=== PATIENT | male | born 1950 | race Caucasian/White ===

== ENCOUNTER → 2022-05-21 08:55 | Outpatient (BNVA) | payer MEDICARE, OTHER, SELFPAY | PROVIDERS: PCP Family Medicine; Referring Provider Family Medicine; Visit Provider Student in an Organized Health Care Education/Training Program | DX: M17.11 Unilateral primary osteoarthritis, right knee (principal); M17.12 Unilateral primary osteoarthritis, left knee | CPT/HCPCS: 99213 ==

== ENCOUNTER 2023-09-09 02:24 | Outpatient (CLI) | payer OTHER, SELFPAY ==
[2023-09-09 12:19] LABS: HCT 42.6 % (40.0-50.0); HGB 14.5 g/dL (13.5-17.5); MCH 31.6 pg (27.0-33.0); MCV 93 fL (80-95); MPV 8.8 fL (8.0-11.0); Platelet Count 245 10^3/uL (130-400); RBC 4.59 10^6/uL (4.36-5.78); RDW 12.7 % (11.8-14.1); RDW-SD 43.8 fL; WBC 8.83 10^3/uL (4.4-10.8)
[2023-09-09 12:57] LABS: Anion Gap 8.2 mmol/L (3-11); BUN 25 mg/dL (7-18); CO2 28.8 mmol/L (21.0-32.0); CREATININE 1.2 mg/dL (0.70-1.30); Chloride 105 mmol/L (98-107); Estimated GFR 63.46 (mL/min/1.73m2); Glucose 104 mg/dL (74-106); Sodium 142 mmol/L (136-145)
== END 2023-09-09 02:25 | disposition home or self-care (01) ==
PROVIDERS: PCP Family Medicine; Visit Provider Student in an Organized Health Care Education/Training Program
DX: Z01.818 Encounter for other preprocedural examination (principal); M17.11 Unilateral primary osteoarthritis, right knee
CPT/HCPCS: 36415; 80048; 85027

== ENCOUNTER 2023-09-09 11:37 | Outpatient (CLI) | payer OTHER, SELFPAY ==
--- NOTE | 2023-09-09 11:00 | DI.RAD_ITS ---
Exam(s) XR STANDING ALIGNMENT EXAM: XR STANDING ALIGNMENT CLINICAL HISTORY: TKR planning. TECHNIQUE: 2D digital imaging was performed. Standing AP views were performed from the pelvis throu gh the ankles. COMPARISON: No exams were available for comparison FINDINGS: BONES: No acute fracture is present. No bony destructive lesion is seen. Leg length discrepancy: Minimal JOINTS: Knees: Severe degenerative changes of both medial femoral tibial joint spaces. Varus angulat ion. Ankles: Severe degenerative changes at the lateral tibiotalar and fibular talar joint of the right an kle. Mild degenerative changes of the left ankle. The hip joints show mild degenerative changes. SOFT TISSUE: Vascular calcifications. IMPRESSION: Severe degenerative changes of the medial femoral tibial joint spaces of both knees as well as the r ight ankle.. No significant leg length discrepancy. DATA REPOSITORY: RADIATION DOSE DELIVERED:
== END 2023-09-09 11:38 | disposition home or self-care (01) ==
LOC: DIORS 11:37
PROVIDERS: PCP Family Medicine; Visit Provider Physician Assistant
DX: M17.11 Unilateral primary osteoarthritis, right knee (principal); M17.12 Unilateral primary osteoarthritis, left knee; M19.071 Primary osteoarthritis, right ankle and foot; M19.072 Primary osteoarthritis, left ankle and foot
CPT/HCPCS: 77073

== ENCOUNTER 2023-09-22 07:04 | Day surgery (SDC) | payer OTHER, SELFPAY ==
[2023-09-22] VITALS (12 sets, daily range): BP systolic 77–144; BP diastolic 48–102; PULSE 56–76; RESP 15–20; TEMP 36.1–36.7; O2SAT 95–99; BMI 39.0
--- NOTE | 2023-09-22 07:29 | W.PM.DSUDISC ---
Date of service: 09/22/23 Time of Service: 07:29 Discharge Plan Disposition Patient Disposition: Home Condition: Good Discharge Details Reason For Visit: L TKR Attending Provider: Long Maya Primary Care Provider: Leatha Rangel Home Meds and New Rx's Prescriptions: New celecoxib 200 mg capsule 200 mg PO BID Qty: 60 0RF aspirin 81 mg tablet,delayed release (DR/EC) 81 mg PO BID Qty: 60 0RF acetaminophen 500 mg tablet 1,000 mg PO TID Qty: 90 3RF pantoprazole 40 mg tablet,delayed release (DR/EC) 40 mg PO DAILY Qty: 30 0RF dexamethasone 4 mg tablet 4 mg PO DAILY Qty: 2 0RF gabapentin 300 mg capsule 300 mg PO QHS Qty: 14 0RF oxycodone 5 mg tablet 5 mg PO Q4H MDD 6 tabs PRN (Reason: pain) Qty: 20 0RF Continued cetirizine 10 mg tablet 10 mg PO DAILY PRN hydrochlorothiazide 25 mg tablet 25 mg PO DAILY simvastatin 40 mg tablet 40 mg PO DAILY cholecalciferol (vitamin D3) 25 mcg (1,000 unit) capsule 25 mcg PO DAILY Discharge Instructions Additional Instructions: Total Knee Discharge Instructions Activity: The most important activity is to walk and to work on gentle motion (both flexion and extension). You should try to take short walks a few times a day. It is important that when resting you work on keeping the knee straight. Avoid putting a pillow behind the knee as this will encourage flexion. Work on range of motion exercises as provided by Physical Therapy. - Start outpatient physical therapy within 2 weeks. - You should wear the HAMIDA hose on both legs for 2 weeks. You may remove these at night. You may also use any compression sock in place of the HAMIDA hose. - Utilize [employer] to review exercises, see videos on exercises and obtain basic information pertaining to your surgery and your recovery. Dressing: Remove the Moris wrap by 2 days after your surgery and put on the HAMIDA stocking given to you from the hospital. Keep the surgical dressing (underneath the MORIS wrap) in place for at least one week. After the first week it may be removed and replaced with light gauze and tape or nothing. The wound and dressing may get wet after 3 days but avoid soaking the dressing or otherwise it will need to be changed. Many people prefer covering the dressing with cling wrap (saran wrap) to minimize it from getting soaked. If it gets wet, just pat dry. If it starts to peel off then it will need to be changed. Medications: - You should take Tylenol and anti-inflammatory Celebrex as your primary pain control medications. If the Celebrex is too expensive or not covered, please call the office for another alternative (Advil/Ibuprofen or Naproxen/Aleve) - You have been prescribed a stronger pain medication Oxycodone for breakthrough pain, take as needed as prescribed. - You have also been prescribed a stomach acid reduction agent Pantoprozole to help reduce stomach acid and reflux. - You have been prescribed Gabapentin to take at night for restlessness and nerve pain. - You will be taking Aspirin 81mg twice a day for DVT prevention unless instructed otherwise. - You have also been prescribed Decadron to take to control post-operative nausea and pain. You will start this tomorrow. - If you have constipation you should take Colace or Miralax (both [id number]). It takes most people 3-4 days to have a bowel movement. Follow-up: 2 weeks If you have any acute concerns or questions, please do not hesitate to contact the office at [phone]. You may contact Dr. Maya with any questions after hours through the hospital at [phone] or on his cell phone at [phone]. Referrals: Long Maya MD [ [facility] STAFF PHYSICIAN] - Equipment/Supplies: Walker Activity:: Activity as Tolerated Shower/Bathe:: 72 hours Diet:: As Tolerated DS: Diagnosis Discharge Diagnosis (1) Localized osteoarthritis of left knee: Status: Acute
[2023-09-22] MEDS: Lactated Ringers 1,000 ML 80 ML IV ×2 (07:49→11:38)
[2023-09-22] MEDS: Gabapentin 300 MG CAP PO (07:50)
[2023-09-22] MEDS: Acetaminophen 500 MG TAB 1000 MG PO (07:50)
[2023-09-22] MEDS: Celecoxib 200 MG CAP 400 MG PO (07:51)
--- NOTE | 2023-09-22 08:18 | W.ANESPRE ---
General Info Date of Service Date Performed: 09/22/23 Height: 5 ft 10 in Weight: 123.5 kg Body Mass Index (BMI): 39.0 Surgical Procedure: Operation Date: 09/22/23 09:25 Proposed Procedure Side Surgeon p Knee Total Arthroplasty, Cementless CR Left Long Maya MD Meds Allergies and Home Medications Allergies Allergy/AdvReac Type Severity Reaction Status Date / Time No Known Allergies Allergy Verified 09/22/23 07:41 Home Medication Medication Instructions Recorded cetirizine 10 mg tablet 10 mg PO DAILY PRN 04/06/22 hydrochlorothiazide 25 mg tablet 25 mg PO DAILY 04/06/22 simvastatin 40 mg tablet 40 mg PO DAILY 04/06/22 cholecalciferol (vitamin D3) 25 25 mcg PO DAILY 09/09/23 mcg (1,000 unit) capsule acetaminophen 500 mg tablet 1,000 mg (2 x 500 mg) PO TID #90 09/22/23 tabs aspirin 81 mg tablet,delayed 81 mg PO BID #60 tabs 09/22/23 release celecoxib 200 mg capsule 200 mg PO BID #60 caps 09/22/23 dexamethasone 4 mg tablet 4 mg PO DAILY #2 tabs 09/22/23 ergocalciferol (vitamin D2) 1,250 09/22/23 mcg (50,000 unit) capsule gabapentin 300 mg capsule 300 mg PO QHS #14 caps 09/22/23 naproxen sodium 220 mg capsule 220 mg PO ONCE 09/22/23 (Aleve) oxycodone 5 mg tablet 5 mg PO Q4H PRN pain #20 tabs 09/22/23 pantoprazole 40 mg tablet,delayed 40 mg PO DAILY #30 tabs 09/22/23 release Current Visit Medications: Current Medications Generic Name Dose Route Start Last Admin Trade Name Freq PRN Reason Stop Dose Admin Acetaminophen 1,000 mg 09/22/23 06:00 09/22/23 07:50 Acetaminophen 500 Mg Tab PO 10/22/23 05:59 1,000 mg PREOP LINDA Administration Acetaminophen 1,000 mg 09/22/23 07:27 Acetaminophen 500 Mg Tab PO 10/22/23 07:26 TID PRN PRN Analgesia Celecoxib 400 mg 09/22/23 06:00 09/22/23 07:51 Celecoxib 200 Mg Cap PO 10/22/23 05:59 400 mg PREOP LINDA Administration Docusate Sodium 100 mg 09/22/23 07:27 Docusate Sodium 100 Mg Cap PO 10/22/23 07:26 BID PRN PRN Constipation Gabapentin 300 mg 09/22/23 06:00 09/22/23 07:50 Gabapentin 300 Mg Cap PO 10/22/23 05:59 300 mg PREOP LINDA Administration Tranexamic Acid 1,000 mg/ 60 mls @ 360 mls/hr 09/22/23 06:00 Sodium Chloride IVPB 10/22/23 05:59 PREOP LINDA Ringer's Solution 1,000 mls @ 80 mls/hr 09/22/23 06:00 09/22/23 07:49 IV 09/22/23 23:59 80 mls/hr INFUSION LINDA Administration Cefazolin Sodium/Dextrose 2 gm in 50 mls @ 100 mls/hr 09/22/23 06:00 Ancef Duplex IVPB 09/22/23 23:59 PREOP LINDA IV Miscellaneous Supplies 1 each 09/22/23 06:00 Iv Access IV 09/22/23 23:59 DIRECTED LINDA Ondansetron HCl 4 mg 09/22/23 07:27 Ondansetron 4 Mg/2 Ml Vial IVP 10/22/23 07:26 Q6H PRN PRN Nausea Oxycodone HCl 0 mg 09/22/23 07:27 Oxycodone 5 Mg Tab PO 10/22/23 07:26 Q3H PRN PRN Pain Polyethylene Glycol 17 gm 09/22/23 07:27 Polyethylene Glycol 3350 17 Gm Packet PO 10/22/23 07:26 BID PRN PRN Constipation Sodium Chloride 0 ml 09/22/23 06:00 Normal Saline Flush 10 Ml Syr IV 09/22/23 23:59 PRN PRN Sodium Chloride 0 ml 09/22/23 06:00 Normal Saline 10 Ml Vial IJ 09/22/23 23:59 DIRECTED PRN Sterile Water 0 ml 09/22/23 06:00 Water,Injection,Sterile 10 Ml Vial IJ 09/22/23 23:59 DIRECTED PRN PFSH Active Problems Active Problems: Problem Status Onset Code Localized osteoarthritis of left knee M17.12 Localized osteoarthritis of right knee M17.11 Essential hypertension I10 Medical History Medical History (Updated 09/21/23 @ 11:13 by Chris Nieves) Hx of syncope Per pt. states the sight of blood can trigger this Erectile dysfunction due to arterial insufficiency Bilateral sensorineural hearing loss Hypercholesterolemia Chorioretinal scar of left eye Obesity Heart disease Per states he has a family hx of heart disease, states he has never had heart disease Medical History Comments:: Pt. states he has aspirated during a colo in 12/2022 Surgical History Surgical History H/O vasectomy Tobacco Smoking/Tobacco Use Status: Former Tobacco Use Alcohol Alcohol Intake: current Alcohol intake frequency: holidays/special occasions only Substance Use Substance use: Never Substance use type: does not use Vital Signs and Lab Results Vital Signs Most Recent Vital Signs in EMR: Most Recent Vital Signs Temp Pulse Resp BP Pulse Ox 36.6 C 74 16 134/102 H 98 09/22/23 07:28 09/22/23 07:28 09/22/23 07:28 09/22/23 07:28 09/22/23 07:28 Lab Results Blood Type / Crossmatch: No Data to Display Complete Blood Count: White Blood Count 8.83 10^3/uL (4.4-10.8) 09/09/23 12:02 Red Blood Count 4.59 10^6/uL (4.36-5.78) 09/09/23 12:02 Hemoglobin 14.5 g/dL (13.5-17.5) 09/09/23 12:02 Hematocrit 42.6 % (40.0-50.0) 09/09/23 12:02 Platelet Count 245 10^3/uL (130-400) 09/09/23 12:02 Complete Metabolic Panel: Sodium 142 mmol/L (136-145) 09/09/23 12:02 Potassium 3.0 mmol/L (3.5-5.1) L 09/09/23 12:02 Chloride 105 mmol/L (98-107) 09/09/23 12:02 Carbon Dioxide 28.8 mmol/L (21.0-32.0) 09/09/23 12:02 BUN 25 mg/dL (7-18) H 09/09/23 12:02 Creatinine 1.2 mg/dL (0.70-1.30) 09/09/23 12:02 Est GFR (CKD-EPI 2020) 63.46 (mL/min/1.73m2) 09/09/23 12:02 Calcium 9.0 mg/dL (8.5-10.1) 09/09/23 12:02 Glucose 104 mg/dL (74-106) 09/09/23 12:02 Liver Function Panel: No Data to Display Coagulation Panel: No Data to Display Cardiac Panel: No Data to Display Arterial Blood Gas: No Data to Display Venous Blood Gas: No Data to Display Pancreas Panel: No Data to Display Thyroid Panel: No Data to Display Infectious Disease: No Data to Display Blood Cultures: No Data to Display Toxicology Panel: No Data to Display Imaging and Studies Imaging and Studies Study information below may be from another EMR and interpreted by another provider. Please see original notes in EMR for more complete details. Stress Test Summary: 03/23/22: Negative stress test Anesthesia Assessment and Plan Anesthesia History Personal History: Other (History of aspiration event during colonoscopy, plan for SAB with minimal sedation and GA/ETT/RSI backup) Family History: No Family History of Anesthesia Complications Exercise Tolerance Exercise Tolerance: Metabolic Equivalents>4 Pertinent Negatives Pertinent Negatives: No Symptoms of GERD, No Major Cardiovascular Symptoms or Complaints and No Major Pulmonary Symptoms or Complaints Cardiac & Pulmonary Exam Cardiac Exam: Normal S1/S2 Heart Sounds Pulmonary Exam: Clear Bilateral Breath Sounds Implantable Cardiac Device Does patient have a Pacemaker or an ICD?: No Airway Exam Known Difficult Airway: No Mallampati Class: 1 Mouth Opening: Normal (> 3cm) Thyromental Distance: Greater than 3 cm Facial Hair: Full Jones (Mustache) Neck Range of Motion: Full ROM Neck Circumference: Normal Teeth Condition: Normal Dentition ASA Classification ASA Score: ASA 2 Emergency Case?: No NPO Status NPO Status: NPO Clears >2 hours, Solids >8 hours Anesthesia Plan Resuscitation Status: Full Code Anesthesia Technique: Spinal Anesthesia Airway Planned: Natural Airway Pain Management: Surgeon and patient request nerve block Monitors Used: Standard Monitors
[2023-09-22] MEDS: ceFAZolin 2 GM/50 ML BAG IVPB (09:22)
--- NOTE | 2023-09-22 10:04 | W.ANESNERVE ---
Nerve Block Single Injection Procedure Date and Time Date Performed: 09/22/23 Procedure Start: 08:42 Location Where Procedure Performed Procedure Location: Day Surgery Unit Reason Performed: Postoperative Analgesia Requesting Provider: Long Maya Timeout Performed Timeout Performed: Yes Monitoring Used ECG, Blood Pressure and SpO2 Sterility Sterility: Hand Hygiene, Surgical Cap, Surgical Mask, Sterile Gloves and Chlorhexidine Sedation Given During Procedure Sedation Given (Indicate Dose Given): Versed IV Dose:: 2mg Patient Mental Status Patient Mental Status: Sedate with meaningful communication Nerve Block 1st Nerve Block: Laterality: Left Block Type: Adductor Canal Ultrasound Image Saved?: Yes Needle / Catheter Used: 100mm SonoPlex II Local Anesthetic Bolus (Indicate Dose Given): Lidocaine used for local infiltration of skin, Injected in 3-5ml increments after negative blood aspiration and Bupivacaine 0.25% Dose:: 15 mL Additives (Indicate Dose Given): None Ultrasound: Sterile probe cover and gel used Nerve Stimulator: Supplement to Ultrasound use and No twitch or parasthesia noted < 0.5 mA Paresthesia: None Procedure Tolerated: No Complications Procedure Outcome: Successful Performed By: Keiry Gupta
--- NOTE | 2023-09-22 10:44 | ROE_ITS ---
Date of service: 09/22/23 Time of Service: 09:30 Operative Note Operative Note DATE OF PROCEDURE: 09/22/23 PRE-OP DIAGNOSIS: Left Knee Osteoarthritis POST-OP DIAGNOSIS: same PROCEDURE: Left Total Knee Replacement SURGEON: Long Maya [employer] MACHINE OPERATOR: Mary Manrique ANESTHESIA TYPE: General LMA/ETT and Spinal Refer to Anesthesia Record ESTIMATED BLOOD LOSS: 150 PATHOLOGY: none sent TOURNIQUET TIME: 0 COMPLICATIONS: None Patient was transported to: PACU Patient's condition: stable Implants: 1. Depuy Attune Cementless Cruciate Retaining Femoral Component, Size 6 2. Depuy Attune Cementless Fixed Bearing Tibial Component, Size 7 3. Depuy Attune 6x8 CR/FB Poly 4. Depuy Attune Patellar Component, Size 38 Indications: I have seen Shankar in clinic for symptoms of knee arthritis, confirmed with radiographic findings. He has exhausted nonoperative methods and was having significant limitations in daily function and desired better function and less pain. I discussed the technical details of a knee replacement. I explained the risks of the procedure to include, but not limited to, bleeding, infection, pain, stiffness, fracture, damage to nerves and vessels, damage to muscles and tendons, loosening, need for repeat procedure, blood clot and cardiopulmonary demise. Despite these risks, Shankar elected to proceed. Findings: There was significant signs of arthritis throughout the knee. Procedure Description: Shankar was greeted in the preoperative holding area where the correct side was identified and marked. The consent was reviewed with the patient and signed. The history and physical was updated. All questions were answered. Preoperative medications were administered: Acetaminophen 1000mg, Celebrex 400mg, and Gabapentin 300mg. An adductor canal block was then administered by the anesthesia team in the PACU. He was taken back to the operating room. A spinal anesthestic was then administered however it did not have a complete setup and thus a general anesthetic was given. The patient was placed into the supine position on the operating room table. A nonsterile tourniquet was placed high onto the leg but only used for cementing. Posts were placed for positioning during the procedure. All bony prominences were well padded. Prophylactic antibiotics in the form of Cefazolin were administered. 1g of Tranxemic Acid was given intravenously within 30 minutes of incision. The right leg was then prepped with Chloraprep and draped in a standard fashion with impervious stockinette. A second prep with Chloraprep was performed prior to application of Iodine impregnated skin protection. A timeout to confirm correct identity, side and site, procedure, allergies, anesthesia, and medical concerns was performed. With the knee in some flexion, a midline incision was made overlying the knee. Full thickness skin flaps were raised once the extensor mechanism was encountered. These were raised medially and laterally. Any bleeding was controlled with electrocautery. Once the extensor mechanism was fully exposed, a medial parapatellar arthrotomy was performed in a flexed position. All bleeding from the arthrotomy and the geniculate arteries was coagulated. A medial subperiosteal peel was performed with electrocautery to the midcoronal plane. Due to the significant varus deformity the entire medial tibial plateau was exposed. The fat pad was removed while keeping the patellar tendon protected. The anterior distal femur synovium was removed for later visualization. The ACL and PCL were resected and the ant erior horn of the lateral meniscus was transected. The knee was then flexed with the patella everted. Large osteophytes from the tibia were removed. Large osteophytes from the femur were removed. Using a step drill, and based on preoperative templating, the femoral canal was entered. This was done with a step drill without any difficulty. The intramedullary distal femoral cut guide was inserted, set to a 6 degree valgus cut and 9mm cut thickness. The distal femoral cut guide was then held in position and pinned. With the soft tissues protected, the distal cut was performed. This was passed over a few times to ensure a planar cut. I then turned attention to the tibia. The extramedullary guide was placed onto the leg. The distal aspect was slid medial to adjust for position of center of ankle and stay in line with shaft of the tibia. Approximately 3-5 degrees of posterior slope was kept in the proximal cutting guide. The center of the guide was aligned with the PCL. The stylus was used to assess cut thickness. The medial side, most involved side, was set for a 3mm cut. This was then held in position and pinned into place with 2 additional pins and a cross pin for stability. The medial and lateral collateral ligaments were protected and the cut was performed. With this completed, it was assessed and noted to be of appropriate dimensions. The guide was removed. A spacer block was inserted and the knee was brought into extension. The 8mm spacer block provided full extension, without hyperextension and with stability of both the medial and lateral collateral ligaments was assessed. The pins from the femur and the tibia were then removed. The distal femur was then sized. The anterior stylus was placed onto the lateral ridge of the anterior femur. This indicated a size 6 femur. The external rotation of the guide was adjusted to 0 degrees to match the epicondylar axis, perpendicular to Hancock?s line. The 4-in-1 cutting guide was the placed. The posterior medial femur cut was evaluated and appeared of good thickness. The spacer block was inserted underneath the cutting guide and stability was confirmed in 90 degrees of flexion. An paulina wing was used to confirm appropriate position of the anterior cut to avoid notching. This cutting guide was ensured to be flush on the cut surface and then pinned into place with headed pins. While protecting the soft tissues, quad tendon, and collateral ligaments, the anterior and posterior cuts were performed with a saw. The central two pins were removed and the posterior and anterior chamfers were cut next. The notch-cutting guide was placed. This was pinned to lateralize the femoral component as much as possible while keeping it flush on the cut surface. This was then pinned into position. A reciprocating saw was used to make the notch cut. A rasp smoothed the cut surfaces. The medial and lateral menisci were removed. A trial femoral component was then inserted, impacted down to the cut surfaces, and the lug holes were drilled. A provisional trial tibial component was placed and the knee was brought through range of motion. The polyethylene was trialed until there was good flexion and extension with excellent stability to the medial and lateral collaterals. The patella was tracking without thumbs. A size 8mm polyethylene component provided the best range of motion and stability with less than 2mm gapping with medial and lateral stress and full extension without significant hyperextension. The tibial cut surface was fully exposed. The tibia was then sized as a 7. The tibia had been previously marked during trialing to correspond to the center of the tibial component to help with rotation. The trial was aligned to this mary, approximately rotated to the medial 1/3rd of the tibial tubercle. The trial was pinned into place. The tibia was prepared with a reamer and a keel punch and lug holes. The knee was then brought into extension and the patella was measured as 26mm. Using the patellar clamp and cut guide, this was resected to a flat surface with at least 13mm of thickness remaining. The size 38 patella fit the best. This was oriented and then clamped into position. The lugs were drilled. The trial components were removed. The final components were opened on the back table. The periosteal and capsular tissues, especially posteriorly, around the knee were then systematically injected with a periarticular cocktail consisting of 246mg of Ropivacaine, 0.5mg of Epinephrine, 0.08mg of Clonidine, and 30mg of Ketorolac, diluted to 100cc. On the back table, with the implants opened, the cement was mixed. One batch of high viscosity cement was prepared with vacuum assistance. After the cement was ready a small amount was placed on the cut surface of the patella and the patellar button was clamped into position and held. While the cement was hardening, the cementless knee components were placed. Starting with the tibial component, the tibia was subluxed anteriorly and the lug holes of the component were lined up. The tibia was then impacted with an impactor and mallet until the tibial component was in contact with the tibia. The final polyethylene component was inserted. Then, the femoral component was inserted. The lug holes were aligned and the component was impacted into position. The knee was irrigated with Irrisept chlorhexadine solution. This was allowed to sit in the knee for 3 minutes and then it was irrigated out with saline. After the cement had finally cured, approximately 15min, the clamp was removed from the patella and the knee was taken through range of motion. The patella was tracking with a no-thumbs technique. The capsule was then reapproximated with a No. 1 Vicryl at multiple locations. The capsule was finally closed with a No. 2 Stratafix, barbed suture. The second dosing of 1g TXA was started. Deep tissues were then reapproximated with 0 Vicryl and 2-0 Vicryl. The skin was closed with a running 3-0 Monocryl in a subcuticular fashion. This was reinforced with skin glue. A Mepilex silver dressing was applied along with a [id number] MICHAEL wrap. A CryoCuff was applied. Shankar was transferred to the hospital bed without difficulty an suffering no apparent complication. Shankar has a good prognosis. Physical therapy will start today and without restrictions, weight-bearing as tolerated. Aspirin 81mg BID will be used for DVT prophylaxis.
--- NOTE | 2023-09-22 11:49 | W.ANESPOSTOP ---
Postoperative Evaluation Date, Time and Location Date Performed: 09/22/23 Time Performed: 11:49 Patient Location: Day Surgery Unit Vital Signs Most Recent Imported Vital Signs: Most Recent Vital Signs Temp Pulse Resp BP Pulse Ox 36.4 C L 60 18 101/54 L 99 09/22/23 11:42 09/22/23 11:42 09/22/23 11:42 09/22/23 11:42 09/22/23 11:42 Pain Score Most Recent Pain Score: Most Recent Pain Score Pain Level 0 09/22/23 11:42 Assessment Mental Status: Awake (Alert & Oriented to Patient Baseline) Airway and Respiratory Function: Patent airway with normal (patient baseline) respiratory exam Cardiovascular Function: Hemodynamically Stable Hydration Status: Adequately Hydrated Nausea & Vomiting: No Nausea or Vomiting Pain: Pt. Denies Any Pain Peripheral Nerve Block: Regional nerve block not resolved at time of post operative discharge
--- NOTE | 2023-09-22 14:02 | PT.INIE ---
PT Notes Visit Reasons: L TKR Physical Therapy Day Surgery Initial Evaluation Date: 09/22/2023 Referring Doctor: SHIRIN Coello PT Orders: PT CONSULT: S/P Ortho Surgery Precautions: WBAT on the R LE with AD. Patient Profile/Admitting Diagnosis: Bennett is a 72-year-old male with degenerative joint disease of the left knee and is status post left total knee arthroplasty on postoperative day 0. PMHX: Medical History Bilateral sensorineural hearing loss Chorioretinal scar of left eye Erectile dysfunction due to arterial insufficiency Heart disease Hypercholesterolemia Obesity Surgical History H/O vasectomy Social History/Home Situation: Lives alone in a private home with no stairs. Will have adequate support at home as he recovers. Still drives. Served in the [employer] for over 20 years. Independent with all aspects of ADLs prior to surgery. Equipment Owned/DME: None Subjective: Denies pain, lightheadedness, and chest pain throughout session. Per Nurse Irena, patient has not need anything for pain since coming back to [facility]. Objective: General Observation: Moris wrap's on left LE. Crycuff on left knee. TEDS on right leg. Mental Status: A and O x 4 Pain: Denies ROM: Right Lower Extremity: Hip flexion WFL. Hip abduction WFL. Knee flexion WFL. Ankle dorsiflexion WFL. Ankle plantarflexion WFL. Left Lower Extremity: Hip flexion WFL. Hip abduction WFL. Knee flexion 0-100 degrees. Ankle dorsiflexion WFL. Ankle plantarflexion WFL. Strength: Right Lower Extremity: Hip flexors 5/5. Hip abductors 5/5. Knee flexors 5/5. Knee extensors 5/5. Ankle dorsiflexors 5/5. Ankle plantarflexors 5/5. Left Lower Extremity:Hip flexors 4/5. Hip abductors 4/5. Knee flexors 3-/5. Knee extensors 4-/5. Ankle dorsiflexors 4/5. Ankle plantarflexors 5/5. Sensation: intact as to pain and light pressure in B LE. Bed Mobility/Transfers: Minimal minimal verbal cueing provided for hand placement, movement sequence, gait pattern, and AD management Supine to sit standby assist Sit to stand standby assist with FWW Stand to sit standby assist with FWW Bed to chair standby assist with FWW Gait: Facilitated safe and correct performance of level surface ambulation covering a distance of about 150 feet with reciprocal step through heel-toe gait pattern requiring only standby assist and minimal verbal cueing for gait pattern, posture, and movement sequence. Stairs: Guided with a safe and correct negotiation of 3 x 6 inch steps and 2 x 4 inch steps while holding onto bilateral rails with step to gait pattern requiring only standby assist with cues provided for increased knee flexion on the left side during ascent with no reported increased pain in the left knee. Balance: Static Sitting: Normal Dynamic Sitting: Normal Static Standing: Good Dynamic Standing: Fair Special Tests: Mobility Limitations Standardized Measure [facility] 6 clicks Basic Mobility Inpatient Short Form: Raw Score: 24 CMS Score: 0% deficit Informed Consent/Education: Patient instructed in purpose of PT consult. Packet containing TKA exercise protocol has been given to patient. Education and training on initial set of exercises that can be done at home have been completed with patient. Trained patient with correct performance of exercises below to maximize motor control, joint flexibility, soft tissue extensibility of the L knee musculature: Access Code: [email or web address] URL: [email or web address] Date: 09/22/2023 Prepared by: Nancy De Anda Exercises - Supine Quad Set - 1 x daily - 7 x weekly - 1 sets - 10 reps - 5 hold - Supine Heel Slide - 1 x daily - 7 x weekly - 1 sets - 10 reps - 5 hold - Supine Ankle Pumps - 1 x daily - 7 x weekly - 1 sets - 10 reps - 5 hold - Small Range Straight Leg Raise - 1 x daily - 7 x weekly - 1 sets - 10 reps - 5 hold - Seated March - 1 x daily - 7 x weekly - 1 sets - 10 reps - 5 hold Assessment: Patient requires use of a front wheeled walker for mobility ADL performance to maximize independence and reduce fall risk. Patient presents with clinical signs and symptoms consistent with current/admitting diagnoses that have resulted to mobility limitations, gait instability, generalized weakness, and impairment of motor control as demonstrated by the following impairment level findings: 1. Decreased strength to left knee major muscle groups 2. Impaired standing balance 3. Limitation of joint range of motion in left knee Impairments are contributing to the following functional limitations: 1. Inability to safely ambulate without assistive device 2. Increase completion time for mobility ADL performance 3. Increased fall risk Patient is assessed as a [id number] moderate 74 complexity based on the following: History: 72-year-old male with impairment level findings, functional limitations, and past medical history as indicated above Examination: Demonstrable impairment in strength, balance, and mobility level with underlying impairments and functional limitations as documented above Presentation: Evolving Decision Makin moderate complexity Goals: N/A. PT evaluation and 1-2 treatment sessions only for functional mobility training using recommended AD and for HEP instruction. Plan of Care/Treatment Plan: N/A. PT evaluation and 1-2 treatment session only for functional mobility training using recommended AD and for HEP instruction. DISCHARGE RECOMMENDATIONS: Home when medically cleared by orthopedic surgeon. Recommend outpatient PT services in order to optimize functional mobility outcomes and facilitate return to independent community ambulation without an assistive device. TREATMENT CODE/TIME: 87968 x 25 minutes for 1 unit, 975 0 x 15 minutes for 1 unit beginning at 14:02 PM. Thank you for the opportunity to participate in the care of this patient. Nancy De Anda PT, DPT, CLT [facility] [place], [place]
== END 2023-09-22 15:20 | disposition home or self-care (01) ==
PROVIDERS: PCP Family Medicine; Visit Provider Student in an Organized Health Care Education/Training Program
PROC: (CPT 27447; principal; 2023-09-22 09:15)
DX: M17.12 Unilateral primary osteoarthritis, left knee (principal); H90.3 Sensorineural hearing loss, bilateral; E66.9 Obesity, unspecified; I10 Essential (primary) hypertension
CPT/HCPCS: 27447; 76942; 97162; 97530; J0690; J1100; J2371; J2405; J3010

== ENCOUNTER 2023-10-07 14:30 | Outpatient (CLI) | payer OTHER, SELFPAY ==
--- NOTE | 2023-10-07 09:30 | DI.RAD_ITS ---
Exam(s) XR KNEE LT 1V XR STANDING ALIGNMENT EXAM: XR STANDING ALIGNMENT CLINICAL HISTORY: 1ST POST OP S/P L TKA. TECHNIQUE: 2D digital imaging was performed. Standing AP views were performed from the pelvis throu gh the ankles. COMPARISON: CR XR STANDING ALIGNMENT from 09/09/2023 CR XR KNEE LT 1V from 10/07/2023 FINDINGS: BONES: No acute fracture is present. No bony destructive lesion is seen. Leg length discrepancy: The left femoral head projects roughly 15 millimeters superior to the right. JOINTS: Knees: Left total knee prosthesis show satisfactory alignment severe degenerative changes not ed in the medial femoral tibial joint space of the right knee causing significant varus angulation.. Ankles: Left ankle joint spaces are maintained. Severe narrowing of the lateral tibiotalar joint spa ce. Narrowing of the fibula talar joint space with prominent periarticular spurring. The hip joints are unremarkable. SOFT TISSUE: Vascular calcifications. IMPRESSION: Severe degenerative changes the medial femoral tibial joint of the right knee. Severe degenerative changes right ankle. Unremarkable left knee prosthesis. . Moderate leg length discrepancy. DATA REPOSITORY: RADIATION DOSE DELIVERED:
== END 2023-10-07 14:31 | disposition home or self-care (01) ==
LOC: DIORS 14:31
PROVIDERS: PCP Family Medicine; Visit Provider Student in an Organized Health Care Education/Training Program
DX: Z96.652 Presence of left artificial knee joint (principal); Z47.1 Aftercare following joint replacement surgery; M17.11 Unilateral primary osteoarthritis, right knee; M19.071 Primary osteoarthritis, right ankle and foot
CPT/HCPCS: 73560; 77073

== ENCOUNTER 2023-11-16 08:11 | Day surgery (SDC) | payer OTHER, SELFPAY ==
[2023-11-16] VITALS (16 sets, daily range): BP systolic 105–157; BP diastolic 60–96; PULSE 51–77; RESP 13–20; TEMP 36.2–36.6; O2SAT 93–99; BMI 38.8
--- NOTE | 2023-11-16 07:57 | PDOC.DSDIS_ITS ---
Date of service: 11/16/23 Time of Service: 08:00 Discharge Plan Disposition Patient Disposition: Home Condition: Good Discharge Details Reason For Visit: Right knee DJD Attending Provider: Long Maya Primary Care Provider: Leatha Rangel Home Meds and New Rx's Prescriptions: New celecoxib [Celebrex] 200 mg capsule 200 mg PO BID PRNQty: 60 0RF Rx Instructions: Take one tablet twice daily for pain and inflammation aspirin 81 mg tablet,delayed release (DR/EC) 81 mg PO BID 30 Days Qty: 60 0RF acetaminophen 500 mg tablet 1,000 mg PO Q8H PRN Qty: 90 0RF Rx Instructions: Take two tablets up to every 8 hours as needed for pain pantoprazole 40 mg tablet,delayed release (DR/EC) 40 mg PO DAILY Qty: 14 0RF dexamethasone 4 mg tablet 4 mg PO DAILY Qty: 2 0RF Rx Instructions: Take one tablet once daily for two days docusate sodium [Colace] 100 mg capsule 100 mg PO BID Qty: 30 0RF gabapentin 300 mg capsule 300 mg PO QHS Qty: 14 0RF Rx Instructions: Take one tablet at bedtime Continued cetirizine 10 mg tablet 10 mg PO DAILY PRN hydrochlorothiazide 25 mg tablet 25 mg PO DAILY simvastatin 40 mg tablet 40 mg PO DAILY cholecalciferol (vitamin D3) 25 mcg (1,000 unit) capsule 25 mcg PO DAILY Discontinued acetaminophen 500 mg tablet 1,000 mg PO BID celecoxib 200 mg capsule 200 mg PO BID Qty: 60 0RF Discharge Instructions Additional Instructions: Total Knee Discharge Instructions Activity: The most important activity is to walk and to work on gentle motion (both flexion and extension). You should try to take short walks a few times a day. It is important that when resting you work on keeping the knee straight. Avoid putting a pillow behind the knee as this will encourage flexion. Work on range of motion exercises as provided by Physical Therapy. - Start outpatient physical therapy within 2 weeks. - You should wear the HAMIDA hose on both legs for 2 weeks. You may remove these at night. You may also use any compression sock in place of the HAMIDA hose. - Utilize [employer] to review exercises, see videos on exercises and obtain basic information pertaining to your surgery and your recovery. Dressing: Remove the Moris wrap by 2 days after your surgery and put on the HAMIDA stocking given to you from the hospital. Keep the surgical dressing (underneath the MORIS wrap) in place for at least one week. After the first week it may be removed and replaced with light gauze and tape or nothing. The wound and dressing may get wet after 3 days but avoid soaking the dressing or otherwise it will need to be changed. Many people prefer covering the dressing with cling wrap (saran wrap) to minimize it from getting soaked. If it gets wet, just pat dry. If it starts to peel off then it will need to be changed. Medications: - You should take Tylenol and anti-inflammatory Celebrex as your primary pain control medications. If the Celebrex is too expensive or not covered, please call the office for another alternative (Advil/Ibuprofen or Naproxen/Aleve) - You had leftover stronger pain medication Oxycodone from your last surgery - resume this medication for breakthrough pain, take as needed as prescribed. - You have also been prescribed a stomach acid reduction agent Pantoprozole to help reduce stomach acid and reflux. - You have been prescribed Gabapentin to take at night for restlessness and nerve pain. - You will be taking Aspirin 81mg twice a day for DVT prevention unless instructed otherwise. - You have also been prescribed Decadron to take to control post-operative nausea and pain. You will start this tomorrow. - If you have constipation you should take Colace (which has been prescribed) or Miralax (which is available [id number]). It takes most people 3-4 days to have a bowel movement. Follow-up: 2 weeks If you have any acute concerns or questions, please do not hesitate to contact the office at [phone]. You may contact Dr. Maya with any questions after hours through the hospital at [phone] or on his cell phone at [phone]. Referrals: Long Maya MD [ [facility] STAFF PHYSICIAN] - Equipment/Supplies: Walker Activity:: Elevate Remove Dressings/Wound Care:: Do Not Remove Shower/Bathe:: 72 hours and Cover Diet:: As Tolerated Discharge Orders Discharge Orders: Discharge Order (Routine); Ordered 11/16/23 Ordered By: Rosaura Carrizales
[2023-11-16] MEDS: Lactated Ringers 1,000 ML 80 ML IV (08:35)
[2023-11-16] MEDS: Acetaminophen 500 MG TAB 1000 MG PO (08:59)
[2023-11-16] MEDS: Celecoxib 200 MG CAP 400 MG PO (08:59)
[2023-11-16] MEDS: Gabapentin 300 MG CAP PO (08:59)
--- NOTE | 2023-11-16 10:27 | W.ANESPRE ---
General Info Date of Service Date Performed: 11/16/23 Height: 5 ft 10 in Weight: 122.7 kg Body Mass Index (BMI): 38.8 Surgical Procedure: Operation Date: 11/16/23 10:55 Proposed Procedure Side Surgeon p Knee Total Arthroplasty, Cementless CR Right Long Maya MD Meds Allergies and Home Medications Allergies Allergy/AdvReac Type Severity Reaction Status Date / Time No Known Allergies Allergy Verified 11/15/23 14:41 Home Medication Medication Instructions Recorded cetirizine 10 mg tablet 10 mg PO DAILY PRN 04/06/22 hydrochlorothiazide 25 mg tablet 25 mg PO DAILY 04/06/22 simvastatin 40 mg tablet 40 mg PO DAILY 04/06/22 cholecalciferol (vitamin D3) 25 25 mcg PO DAILY 09/09/23 mcg (1,000 unit) capsule acetaminophen 500 mg tablet 1,000 mg (2 x 500 mg) PO Q8H PRN 11/16/23 pain #90 tabs aspirin 81 mg tablet,delayed 81 mg PO BID 30 days #60 tabs 11/16/23 release celecoxib 200 mg capsule (Celebrex) 200 mg PO BID PRN #60 caps 11/16/23 dexamethasone 4 mg tablet 4 mg PO DAILY #2 tabs 11/16/23 docusate sodium 100 mg capsule 100 mg PO BID #30 caps 11/16/23 (Colace) gabapentin 300 mg capsule 300 mg PO QHS #14 caps 11/16/23 pantoprazole 40 mg tablet,delayed 40 mg PO DAILY #14 tabs 11/16/23 release Current Visit Medications: Current Medications Generic Name Dose Route Start Last Admin Trade Name Aung PRN Reason Stop Dose Admin Acetaminophen 1,000 mg 11/16/23 06:00 11/16/23 08:59 Acetaminophen 500 Mg Tab PO 12/16/23 05:59 1,000 mg PREOP LINDA Administration Celecoxib 400 mg 11/16/23 06:00 11/16/23 08:59 Celecoxib 200 Mg Cap PO 12/16/23 05:59 400 mg PREOP LINDA Administration Gabapentin 300 mg 11/16/23 06:00 11/16/23 08:59 Gabapentin 300 Mg Cap PO 12/16/23 05:59 300 mg PREOP LINDA Administration Hydromorphone HCl 0.5 mg 11/16/23 07:55 Hydromorphone 2 Mg/Ml Syr IVP 12/16/23 07:54 Q2H PRN PRN Tranexamic Acid 1,000 mg/ 60 mls @ 360 mls/hr 11/16/23 06:00 Sodium Chloride IVPB 12/16/23 05:59 PREOP LINDA Ringer's Solution 1,000 mls @ 80 mls/hr 11/16/23 06:00 11/16/23 08:35 IV 11/16/23 23:59 80 mls/hr INFUSION LINDA Administration Cefazolin Sodium 3,000 mg/ 100 mls @ 200 mls/hr 11/16/23 06:00 Sodium Chloride IV 11/16/23 16:00 PREOP LINDA Cefazolin Sodium/Dextrose 1 gm in 50 mls @ 100 mls/hr 11/16/23 08:00 Ancef Duplex IVPB 11/17/23 00:29 Q8H LINDA IV Miscellaneous Supplies 1 each 11/16/23 06:00 Iv Access IV 11/16/23 23:59 DIRECTED LINDA Oxycodone HCl 0 mg 11/16/23 07:55 Oxycodone 5 Mg Tab PO 12/16/23 07:54 Q3H PRN PRN Pain Sodium Chloride 0 ml 11/16/23 06:00 Normal Saline Flush 10 Ml Syr IV 11/16/23 23:59 PRN PRN Sodium Chloride 0 ml 11/16/23 06:00 Normal Saline 10 Ml Vial IJ 11/16/23 23:59 DIRECTED PRN Sterile Water 0 ml 11/16/23 06:00 Water,Injection,Sterile 10 Ml Vial IJ 11/16/23 23:59 DIRECTED PRN PFSH Active Problems Active Problems: Problem Status Onset Code History of total left knee replacement 09/22/23 Z96.652 Localized osteoarthritis of right knee M17.11 Essential hypertension I10 Medical History Medical History Hx of syncope Per pt. states the sight of blood can trigger this Erectile dysfunction due to arterial insufficiency Bilateral sensorineural hearing loss Hypercholesterolemia Chorioretinal scar of left eye Obesity Heart disease Per states he has a family hx of heart disease, states he has never had heart disease Medical History Comments:: Pt. states during a colonoscopy at weeks hx stated he was told he aspirated. Pt. states his daughter had a lap fide and they lost her on the table, had to bring her back Surgical History Surgical History H/O vasectomy Tobacco Smoking/Tobacco Use Status: Former Tobacco Use Alcohol Alcohol Intake: current Alcohol intake frequency: holidays/special occasions only Substance Use Substance use: Never Substance use type: does not use Vital Signs and Lab Results Vital Signs Most Recent Vital Signs in EMR: Most Recent Vital Signs Temp Pulse Resp BP Pulse Ox 36.3 C L 77 20 118/78 94 11/16/23 08:20 11/16/23 08:20 11/16/23 10:25 11/16/23 10:25 11/16/23 10:25 Lab Results Blood Type / Crossmatch: No Data to Display Complete Blood Count: No Data to Display Complete Metabolic Panel: No Data to Display Liver Function Panel: No Data to Display Coagulation Panel: No Data to Display Cardiac Panel: No Data to Display Arterial Blood Gas: No Data to Display Venous Blood Gas: No Data to Display Pancreas Panel: No Data to Display Thyroid Panel: No Data to Display Infectious Disease: No Data to Display Blood Cultures: No Data to Display Toxicology Panel: No Data to Display Imaging and Studies Imaging and Studies Study information below may be from another EMR and interpreted by another provider. Please see original notes in EMR for more complete details. Stress Test Summary: 03/23/22: Negative stress test Anesthesia Assessment and Plan Anesthesia History Personal History: Other Family History: Other Exercise Tolerance Exercise Tolerance: Metabolic Equivalents>4 Pertinent Negatives Pertinent Negatives: No Symptoms of GERD, No Major Cardiovascular Symptoms or Complaints and No Major Pulmonary Symptoms or Complaints Cardiac & Pulmonary Exam Cardiac Exam: Normal S1/S2 Heart Sounds Pulmonary Exam: Clear Bilateral Breath Sounds Implantable Cardiac Device Does patient have a Pacemaker or an ICD?: No Airway Exam Known Difficult Airway: No Mallampati Class: 1 Mouth Opening: Normal (> 3cm) Thyromental Distance: Greater than 3 cm Neck Range of Motion: Full ROM Neck Circumference: Normal Teeth Condition: Normal Dentition ASA Classification ASA Score: ASA 2 Emergency Case?: No NPO Status NPO Status: NPO Clears >2 hours, Solids >8 hours Anesthesia Plan Resuscitation Status: Full Code Anesthesia Technique: General Anesthesia Airway Planned: Endotracheal Tube Monitors Used: Standard Monitors and SedLine Preoperative Comments:: GA/ETT/RSI Patient wishes to proceed with planned GA, no attempt at SAB for this TKA.
[2023-11-16] MEDS: ceFAZolin 3,000 MG in Normal Saline 100 ML 200 MG IV (11:01)
--- NOTE | 2023-11-16 11:38 | W.ANESNERVE ---
Nerve Block Single Injection Procedure Date and Time Date Performed: 11/16/23 Procedure Start: 10:15 Location Where Procedure Performed Procedure Location: Day Surgery Unit Reason Performed: Postoperative Analgesia Requesting Provider: Long Maya Timeout Performed Timeout Performed: Yes Monitoring Used ECG, Blood Pressure, SpO2 and See EMR for corresponding vital signs Sterility Sterility: Hand Hygiene, Surgical Cap, Surgical Mask, Sterile Gloves and Chlorhexidine Sedation Given During Procedure Sedation Given (Indicate Dose Given): Versed IV Dose:: 2mg Patient Mental Status Patient Mental Status: Sedate with meaningful communication Nerve Block 1st Nerve Block: Laterality: Right Block Type: Adductor Canal Ultrasound Image Saved?: Yes Needle / Catheter Used: 100mm SonoPlex II Local Anesthetic Bolus (Indicate Dose Given): Lidocaine used for local infiltration of skin, Injected in 3-5ml increments after negative blood aspiration and Bupivacaine 0.25% Dose:: 15mL Additives (Indicate Dose Given): None Ultrasound: Sterile probe cover and gel used Nerve Stimulator: Supplement to Ultrasound use and No twitch or parasthesia noted < 0.5 mA Paresthesia: None Procedure Tolerated: No Complications Procedure Outcome: Successful Performed By: Keiry Gupta
--- NOTE | 2023-11-16 13:25 | W.ANESPOSTOP ---
Postoperative Evaluation Date, Time and Location Date Performed: 11/16/23 Time Performed: 13:25 Patient Location: PACU Vital Signs Most Recent Imported Vital Signs: Most Recent Vital Signs Temp Pulse Resp BP Pulse Ox 36.4 C L 57 L 17 113/60 98 11/16/23 13:00 11/16/23 13:00 11/16/23 13:00 11/16/23 13:00 11/16/23 13:00 Pain Score Most Recent Pain Score: Most Recent Pain Score Pain Level 0 11/16/23 13:00 Assessment Mental Status: Awake (Alert & Oriented to Patient Baseline) Airway and Respiratory Function: Patent airway with normal (patient baseline) respiratory exam Cardiovascular Function: Hemodynamically Stable Hydration Status: Adequately Hydrated Nausea & Vomiting: No Nausea or Vomiting Pain: Pt. Denies Any Pain Peripheral Nerve Block: Patient did not receive a nerve block
--- NOTE | 2023-11-16 14:29 | W.PM.OP ---
Date of service: 11/16/23 Time of Service: 11:00 Operative Note Operative Note DATE OF PROCEDURE: 11/16/23 PRE-OP DIAGNOSIS: Right Knee Osteoarthritis POST-OP DIAGNOSIS: same PROCEDURE: Right Total Knee Replacement SURGEON: Long Maya LANOLIN PLANT OPERATOR: Rosaura Carrizales ANESTHESIA TYPE: General LMA/ETT Refer to Anesthesia Record ESTIMATED BLOOD LOSS: 100 PATHOLOGY: none sent TOURNIQUET TIME: 0 COMPLICATIONS: None Patient was transported to: PACU Patient's condition: stable Implants: 1. Depuy Attune Cementless Cruciate Retaining Femoral Component, Size 7 2. Depuy Attune Cementless Fixed Bearing Tibial Component, Size 7 3. Depuy Attune 7x8 CR/FB Poly 4. Depuy Attune Patellar Component, Size 38 Indications: I have seen Shankar in clinic for symptoms of knee arthritis, confirmed with radiographic findings. He has exhausted nonoperative methods and was having significant limitations in daily function and desired better function and less pain. He had a successful replacement on the left side. I discussed the technical details of a knee replacement. I explained the risks of the procedure to include, but not limited to, bleeding, infection, pain, stiffness, fracture, damage to nerves and vessels, damage to muscles and tendons, loosening, need for repeat procedure, blood clot and cardiopulmonary demise. Despite these risks, Shankar elected to proceed. Findings: There was significant signs of arthritis throughout the knee. Procedure Description: Shankar was greeted in the preoperative holding area where the correct side was identified and marked. The consent was reviewed with the patient and signed. The history and physical was updated. All questions were answered. Preoperative medications were administered: Acetaminophen 1000mg, Celebrex 400mg, and Gabapentin 300mg. An adductor canal block was then administered by the anesthesia team in the PACU. He was taken back to the operating room. A general anesthetic was administered. The patient was placed into the supine position on the operating room table. A nonsterile tourniquet was placed high onto the leg but only used for cementing. Posts were placed for positioning during the procedure. All bony prominences were well padded. Prophylactic antibiotics in the form of Cefazolin were administered. 1g of Tranxemic Acid was given intravenously within 30 minutes of incision. The right leg was then prepped with Chloraprep and draped in a standard fashion with impervious stockinette. A second prep with Chloraprep was performed prior to application of Iodine impregnated skin protection. A timeout to confirm correct identity, side and site, procedure, allergies, anesthesia, and medical concerns was performed. With the knee in some flexion, a midline incision was made overlying the knee. Full thickness skin flaps were raised once the extensor mechanism was encountered. These were raised medially and laterally. Any bleeding was controlled with electrocautery. Once the extensor mechanism was fully exposed, a medial parapatellar arthrotomy was performed in a flexed position. All bleeding from the arthrotomy and the geniculate arteries was coagulated. A medial subperiosteal peel was performed with electrocautery to the midcoronal plane. Due to the significant varus deformity the entire medial tibial plateau was exposed. The fat pad was removed while keeping the patellar tendon protected. The anterior distal femur synovium was removed for later visualization. The ACL and PCL were resected and the anterior horn of the lateral meniscus was transected. The knee was then flexed with the patella everted. Large osteophytes from the tibia were removed. Large osteophytes from the femur were removed. Using a step drill, and based on preoperative templating, the femoral canal was entered. This was done with a step drill without any difficulty. The intramedullary distal femoral cut guide was inserted, set to a 6 degree valgus cut and 9mm cut thickness. The distal femoral cut guide was then held in position and pinned. With the soft tissues protected, the distal cut was performed. This was passed over a few times to ensure a planar cut. I then turned attention to the tibia. The extramedullary guide was placed onto the leg. The distal aspect was slid medial to adjust for position of center of ankle and stay in line with shaft of the tibia. Approximately 3-5 degrees of posterior slope was kept in the proximal cutting guide. The center of the guide was aligned with the PCL. The stylus was used to assess cut thickness. The medial side, most involved side, was set for a 4mm cut. This was then held in position and pinned into place with 2 additional pins and a cross pin for stability. The medial and lateral collateral ligaments were protected and the cut was performed. With this completed, it was assessed and noted to be of appropriate dimensions. The guide was removed. A spacer block was inserted and the knee was brought into extension. The 7mm spacer block provided full extension, without hyperextension and with stability of both the medial and lateral collateral ligaments was assessed. The pins from the femur and the tibia were then removed. The distal femur was then sized. The anterior stylus was placed onto the lateral ridge of the anterior femur. This indicated a size 7 femur. The external rotation of the guide was adjusted to 3 degrees to match the epicondylar axis, perpendicular to [place]?s line. The 4-in-1 cutting guide was the placed. The posterior medial femur cut was evaluated and appeared of good thickness. The spacer block was inserted underneath the cutting guide and stability was confirmed in 90 degrees of flexion. An paulina wing was used to confirm appropriate position of the anterior cut to avoid notching. This cutting guide was ensured to be flush on the cut surface and then pinned into place with headed pins. While protecting the soft tissues, quad tendon, and collateral ligaments, the anterior and posterior cuts were performed with a saw. The central two pins were removed and the posterior and anterior chamfers were cut next. The notch-cutting guide was placed. This was pinned to lateralize the femoral component as much as possible while keeping it flush on the cut surface. This was then pinned into position. A reciprocating saw was used to make the notch cut. A rasp smoothed the cut surfaces. The medial and lateral menisci were removed. A trial femoral component was then inserted, impacted down to the cut surfaces, and the lug holes were drilled. A provisional trial tibial component was placed and the knee was brought through range of motion. The polyethylene was trialed until there was good flexion and extension with excellent stability to the medial and lateral collaterals. The patella was tracking without thumbs. A size 7mm polyethylene component provided the best range of motion and stability with less than 2mm gapping with medial and lateral stress and full extension without significant hyperextension. The tibial cut surface was fully exposed. The tibia was then sized as a 7. The tibia had been previously marked during trialing to correspond to the center of the tibial component to help with rotation. The trial was aligned to this mary, approximately rotated to the medial 1/3rd of the tibial tubercle. The trial was pinned into place. The tibia was prepared with a reamer and a keel punch and lug holes. The knee was then brought into extension and the patella was measured as 25mm. Using the patellar clamp and cut guide, this was resected to a flat surface with at least 13mm of thickness remaining. The size 38 patella fit the best. This was oriented and then clamped into position. The lugs were drilled. The trial components were removed. The final components were opened on the back table. The periosteal and capsular tissues, especially posteriorly, around the knee were then systematically injected with a periarticular cocktail consisting of 246mg of Ropivacaine, 0.5mg of Epinephrine, 0.08mg of Clonidine, and 30mg of Ketorolac, diluted to 100cc. On the back table, with the implants opened, the cement was mixed. One batch of high viscosity cement was prepared with vacuum assistance. After the cement was ready a small amount was placed on the cut surface of the patella and the patellar button was clamped into position and held. While the cement was hardening, the cementless knee components were placed. Starting with the tibial component, the tibia was subluxed anteriorly and the lug holes of the component were lined up. The tibia was then impacted with an impactor and mallet until the tibial component was in contact with the tibia. The final polyethylene component was inserted. Then, the femoral component was inserted. The lug holes were aligned and the component was impacted into position. The knee was irrigated with Irrisept chlorhexidine solution. This was allowed to sit in the knee for 3 minutes and then it was irrigated out with saline. After the cement had finally cured, approximately 15min, the clamp was removed from the patella and the knee was taken through range of motion. The patella was tracking with a no-thumbs technique. The capsule was then reapproximated with a No. 1 Vicryl at multiple locations. The capsule was finally closed with a No. 2 Stratafix, barbed suture. The second dosing of 1g TXA was started. Deep tissues were then reapproximated with 0 Vicryl and 2-0 Vicryl. The skin was closed with a running 3-0 Monocryl in a subcuticular fashion. This was reinforced with skin glue. A Mepilex silver dressing was applied along with a [id number] MICHAEL wrap. A CryoCuff was applied. Shankar was transferred to the hospital bed without difficulty an suffering no apparent complication. Shankar has a good prognosis. Physical therapy will start today and without restrictions, weight-bearing as tolerated. [Aspirin 81mg BID] will be used for DVT prophylaxis.
--- NOTE | 2023-11-16 14:34 | NUR.NOTE ---
Nursing Note: 1015 Regional nerve block completed by Oliver Gupta CRNA. Assisted by Murray Gama RN.(this is name correction for aforementioned name RYNE Thompson from name noted in comment box of Regional Block Note, Oliver Chne CRNA)
--- NOTE | 2023-11-16 16:01 | IN_ITS ---
PT Notes Visit Reasons: Right knee DJD Physical Therapy Day Surgery Initial Evaluation Date: 11/16/2023 Referring Doctor: SHIRIN Canales PT Orders: PT CONSULT: S/P Ortho Surgery Precautions: WBAT on the R LE with AD. Patient Profile/Admitting Diagnosis: Bennett is a 72-year-old male with degenerative joint disease of the R knee and is status post R total knee arthroplasty on postoperative day 0. PMHX: All Active Problems (Updated 10/07/23 @ 09:45 by Marisol Aguirre RN) History of total left knee replacement (Acute 09/22/23) Localized osteoarthritis of right knee (Acute) DEPO MEDROL 11/16/22; 02/15/23; 06/14/2023 Essential hypertension (Acute) Medical History (Updated 10/07/23 @ 09:45 by Marisol Aguirre RN) Hx of syncope Per pt. states the sight of blood can trigger this Erectile dysfunction due to arterial insufficiency Bilateral sensorineural hearing loss Hypercholesterolemia Chorioretinal scar of left eye Obesity Heart disease Per patient he has a family hx of heart disease, states he has never had heart disease Surgical History (Updated 10/07/23 @ 09:45 by Marisol Aguirre RN) H/O vasectomy L TKA Social History/Home Situation: Lives alone in a trailer with a ramp to enter. Will have adequate support at home from family, who live close by, as he recovers. Still drives. Served in the [employer] for over 20 years. Independent with all aspects of ADLs prior to surgery. Equipment Owned/DME: None Subjective: Denies pain, lightheadedness, and chest pain throughout session. Reports 1/10 pain in the R knee at rest and with movement. Objective: General Observation: MICHAEL wrap's on R LE. Crycuff on R knee. TEDS on L leg. Mental Status: A and O x 4 Pain: As above ROM: Right Lower Extremity: Hip flexion WFL. Hip abduction WFL. Knee flexion 1-100. Ankle dorsiflexion WFL. Ankle plantarflexion WFL. Left Lower Extremity: Hip flexion WFL. Hip abduction WFL. Knee flexion WFL. Ankle dorsiflexion WFL. Ankle plantarflexion WFL. Strength: Right Lower Extremity: Hip flexors 4/5. Hip abductors 4/5. Knee flexors 3-/5. Knee extensors 4-/5. Ankle dorsiflexors 4-/5. Ankle plantarflexors 5/5. Left Lower Extremity:Hip flexors 5/5. Hip abductors 5/5. Knee flexors 5/5. Knee extensors 4/5. Ankle dorsiflexors 5/5. Ankle plantarflexors 5/5. Sensation: intact as to pain and light pressure in B LE. Bed Mobility/Transfers: Minimal minimal verbal cueing provided for hand placement, movement sequence, gait pattern, and AD management Supine to sit standby assist Sit to stand standby assist with FWW Stand to sit standby assist with FWW Bed to chair standby assist with FWW Gait: Facilitated safe and correct performance of level surface ambulation covering a distance of about 150 feet with reciprocal step through heel-toe gait pattern requiring only standby assist and minimal verbal cueing for gait pattern, po sture, and movement sequence to reduce fall risk adn pain report. Stairs: Guided with a safe and correct negotiation of 4 x 6 inch steps and 6 x 4 inch steps while holding onto bilateral rails with step to gait pattern requiring only standby assist with cues provided for increased knee flexion on the left side during ascent with no reported increased pain in the left knee. Balance: Static Sitting: Normal Dynamic Sitting: Normal Static Standing: Good Dynamic Standing: Fair Special Tests: Mobility Limitations Standardized Measure [facility] AM-PAC 6 clicks Basic Mobility Inpatient Short Form: Raw Score: 24 CMS Score: 0% deficit Informed Consent/Education: Patient instructed in purpose of PT consult. Packet containing TKA exercise protocol has been given to patient. Education and training on initial set of exercises that can be done at home have been completed with patient. Trained patient with correct performance of exercises below to maximize motor control, joint flexibility, soft tissue extensibility of the R knee musculature: Access Code: [email or web address] URL: [email or web address] Date: 11/16/2022 Prepared by: Nancy De Anda Exercises - Supine Quad Set - 1 x daily - 7 x weekly - 1 sets - 10 reps - 5 hold - Supine Heel Slide - 1 x daily - 7 x weekly - 1 sets - 10 reps - 5 hold - Supine Ankle Pumps - 1 x daily - 7 x weekly - 1 sets - 10 reps - 5 hold - Small Range Straight Leg Raise - 1 x daily - 7 x weekly - 1 sets - 10 reps - 5 hold - Seated March - 1 x daily - 7 x weekly - 1 sets - 10 reps - 5 hold ASSESSMENT: Patient requires use of a front wheeled walker for mobility ADL performance to maximize independence and reduce fall risk. Patient presents with clinical signs and symptoms consistent with current/admitting diagnoses that have resulted to mobility limitations, gait instability, generalized weakness, and impairment of motor control as demonstrated by the following impairment level findings: 1. Decreased strength to left R major muscle groups 2. Impaired standing balance 3. Limitation of joint range of motion in R knee Impairments are contributing to the following functional limitations: 1. Inability to safely ambulate without assistive device 2. Increase completion time for mobility ADL performance 3. Increased fall risk Patient is assessed as a 12914 moderate 74 complexity based on the following: History: 72-year-old male with impairment level findings, functional limitations, and past medical history as indicated above Examination: Demonstrable impairment in strength, balance, and mobility level with underlying impairments and functional limitations as documented above Presentation: Evolving Decision Makin moderate complexity Goals: N/A. PT evaluation and 1-2 treatment sessions only for functional mobility training using recommended AD and for HEP instruction. Plan of Care/Treatment Plan: N/A. PT evaluation and 1-2 treatment session only for functional mobility training using recommended AD and for HEP instruction. DISCHARGE RECOMMENDATIONS: Home when medically cleared by orthopedic surgeon. Recommend outpatient PT services in order to optimize functional mobility outcomes and facilitate return to independent community ambulation without an assistive device. TREATMENT CODE/TIME: 87258 x 20 minutes for 1 unit, 9750 x 28 minutes for 2 units beginning at 14:52 PM. Thank you for the opportunity to participate in the care of this patient. Nancy De Anda PT, DPT, CLT [facility] [place], [place]
== END 2023-11-16 16:15 | disposition home or self-care (01) ==
LOC: SUR 08:12
PROVIDERS: PCP Family Medicine; Visit Provider Student in an Organized Health Care Education/Training Program
PROC: (CPT 27447; principal; 2023-11-16 10:45)
DX: M17.11 Unilateral primary osteoarthritis, right knee (principal); I10 Essential (primary) hypertension; E66.9 Obesity, unspecified; Z96.652 Presence of left artificial knee joint; Z68.38 Body mass index [BMI] 38.0-38.9, adult
CPT/HCPCS: 27447; 76942; 97162; 97530; C1776; J0665; J0690; J1100; J1171; J2001; J2371; J2405; J2704; J3010

== ENCOUNTER 2023-11-29 12:35 | Outpatient (CLI) | payer OTHER, SELFPAY ==
--- NOTE | 2023-11-29 09:30 | DI.RAD_ITS ---
Exam(s) XR STANDING ALIGNMENT XR KNEE RT 1V EXAM: XR STANDING ALIGNMENT and XR knee RT 1 V CLINICAL HISTORY: POST OP RIGHT TKR. TECHNIQUE: 2D digital imaging was performed. Five images were obtained. COMPARISON: CR XR KNEE LT 1V from 10/07/2023 CR XR STANDING ALIGNMENT from 10/07/2023 FINDINGS: BONES: The hips are well maintained. There are bilateral total knee replacements. The orthopedic weathers rdware appears in good position. No lucencies are seen in or about the orthopedic hardware. There a re marked degenerative changes seen in the right ankle with marked narrowing of the lateral joint spa ce.There is no significant leg length discrepancy. SOFT TISSUE: Vascular calcifications are present. IMPRESSION: 1. Stable bilateral total knee replacements. 2. Marked degenerative changes seen in the right ankle. DATA REPOSITORY: RADIATION DOSE DELIVERED:
== END 2023-11-29 12:36 | disposition home or self-care (01) ==
LOC: DIORS 12:39
PROVIDERS: PCP Family Medicine; Visit Provider Student in an Organized Health Care Education/Training Program
DX: Z96.651 Presence of right artificial knee joint (principal); Z96.652 Presence of left artificial knee joint; Z47.1 Aftercare following joint replacement surgery
CPT/HCPCS: 73560; 77073

== ENCOUNTER 2024-11-06 15:50 | Outpatient (CLI) | payer OTHER, SELFPAY ==
--- NOTE | 2024-11-06 08:45 | DI.RAD_ITS ---
Exam(s) XR KNEE LT 2V AP,LAT EXAM: XR KNEE LT 2V AP,LAT CLINICAL HISTORY: ANNUAL F/U L TKA. TECHNIQUE: 2D digital imaging was performed. Two images were obtained. AP and lateral views were ob tained. COMPARISON: CR XR KNEE LT 1V from 10/07/2023 CR XR STANDING ALIGNMENT from 11/29/2023 FINDINGS: BONES: There are stable post operative changes of a left total knee arthroplasty present. No fractur e or dislocation. JOINTS: The orthopedic hardware is in good position. No evidence of hardware loosening. SOFT TISSUE: Atherosclerotic calcification is present. IMPRESSION: Stable left total knee arthroplasty. DATA REPOSITORY: RADIATION DOSE DELIVERED:
--- NOTE | 2024-11-06 08:45 | DI.RAD_ITS ---
Exam(s) XR KNEE RT 2V AP,LAT EXAM: XR KNEE RT 2V AP,LAT CLINICAL HISTORY: ANNUAL F/U R TKA. TECHNIQUE: 2D digital imaging was performed. Two images were obtained. AP and lateral views were ob tained. COMPARISON: CR XR KNEE RT 1V from 11/29/2023 CR XR STANDING ALIGNMENT from 11/29/2023 FINDINGS: BONES: There are stable post operative changes of a right total knee arthroplasty present. No fractu re or dislocation. JOINTS: The orthopedic hardware is in good position. No evidence of hardware loosening. SOFT TISSUE: Extensive atherosclerotic calcification is present. IMPRESSION: Stable right total knee arthroplasty. DATA REPOSITORY: RADIATION DOSE DELIVERED:
== END 2024-11-06 15:51 | disposition home or self-care (01) ==
LOC: DIORS 15:50
PROVIDERS: PCP Family Medicine; Visit Provider Student in an Organized Health Care Education/Training Program
DX: Z96.653 Presence of artificial knee joint, bilateral (principal); Z47.1 Aftercare following joint replacement surgery
CPT/HCPCS: 73560

== ENCOUNTER 2024-11-27 15:53 | Outpatient (CLI) | payer OTHER, SELFPAY ==
--- NOTE | 2024-11-27 08:45 | DI.RAD_ITS ---
Exam(s) XR ANKLE RT COMPLETE EXAM: XR ANKLE RT COMPLETE CLINICAL HISTORY: right ankle pain. TECHNIQUE: 2D digital imaging was performed of the right ankle. Three images were obtained. AP, la teral and oblique views were obtained. COMPARISON: CR XR STANDING ALIGNMENT from 10/07/2023 CR XR STANDING ALIGNMENT from 11/29/2023 FINDINGS: BONES: No acute fracture is present. No bony destructive lesion is seen. JOINTS: There is marked arthrosis of the right ankle characterized by marked joint space narrowing pa rticularly laterally. Osteophytes are also seen around the joint space. There are well corticated o sseous densities adjacent to the lateral malleolus which appear chronic. Subchondral cysts are seen in the talar dome and the distal fibula. SOFT TISSUE: Atherosclerotic calcification is present. IMPRESSION: Marked degenerative changes of the right ankle. DATA REPOSITORY: RADIATION DOSE DELIVERED:
== END 2024-11-27 15:54 | disposition home or self-care (01) ==
LOC: DIORS 15:54
PROVIDERS: PCP Family Medicine; Visit Provider Physician Assistant
DX: M19.071 Primary osteoarthritis, right ankle and foot (principal)
CPT/HCPCS: 73610